=== PATIENT | female | born 1935 | race Caucasian/White ===

== ENCOUNTER → 2021-06-13 | Outpatient (CLI) | payer MEDICARE ==
[2016-08-05 10:03] VITALS: BP 149/70
[~2021-06-13] MED LIST: AMLO-187 PO; IOHEXOL 300 MG/ML 75 ML VIAL. IV ONE; LISI10TA16 PO; METO-247 PO; SIMV10TA15 PO
[2021-06-13 11:32] LABS: CREATININE 0.9 mg/dL (0.6-1.0); GFR 59.8
--- NOTE | 2021-06-13 12:47 | RAD ---
EXAM: Abdomen and pelvis CT with and without intravenous contrast. HISTORY: Microscopic hematuria. TECHNIQUE: Computed tomographic images of the abdomen and pelvis were obtained prior to and following the administration of intravenous contrast. Multiplanar reformatting was performed. *One or more of the following individualized dose reduction techniques were utilized for this examina tion: 1. Automated exposure control. 2. Adjustment of the mA and/or kV according to patient size. 3. Use of iterative reconstruction technique. COMPARISON: 08/19/2016. FINDINGS: Evaluation of the lower thorax demonstrates bilateral posterior dependent and basilar atele ctasis with superimposed pleural parenchymal scarring. There is no infiltrate or pleural effusion. Th e heart is normal in size. There is a small hiatal hernia. There is a tiny suspected cyst within the inferior right hepatic lobe. The gallbladder, pancreas, spleen and adrenal glands are unremarkable. There is no evidence of nephro ureterolithiasis or hydronephrosis. There are multiple left greater than right renal parapelvic cysts and tiny cortical cyst. No solid renal lesion is seen. No urothelial lesion is seen. The bladder is unremarkable. There is no appendicitis. There is no bowel obstruction. There is distal colonic diverticulosis. Ther e is no diverticulitis. The uterus is unremarkable. There is a tiny right ovarian follicle. There are 2.8 cm and 1.8 cm left ovarian cysts. The aorta is normal in caliber. There is no lymphadenopathy. There is no acute or suspicious osseous lesion. There are degenerative changes throughout the spine. IMPRESSION: 1. No evidence of nephroureterolithiasis, hydronephrosis or suspicious intrinsic urothelial lesion. T here are multiple renal parapelvic cysts and cortical cysts. No solid renal lesion is seen. Follow is not routinely performed for simple cysts. 2. Distal colonic diverticulosis. 3. Left ovarian cysts. Despite the postmenopausal status of patient, the nearly 5 year course of stab ility favors benignity. Electronically signed by: Erin Flowers MD (06/13/2021 12:45 PM) [id number]
== END ==
LOC: CT 10:22
PROVIDERS: ATTEND Specialist
DX: N28.1 Cyst of kidney, acquired (principal); K57.30 Diverticulosis of large intestine without perforation or abscess without bleeding; N83.202 Unspecified ovarian cyst, left side; J98.11 Atelectasis; J94.8 Other specified pleural conditions; K44.9 Diaphragmatic hernia without obstruction or gangrene
CPT/HCPCS: 36415; 74178; 82565; Q9967

== ENCOUNTER → 2022-02-19 | Outpatient (CLI) | payer MEDICARE ==
[2016-08-05 10:03] VITALS: BP 149/70
[~2022-02-19] MED LIST changes: -IOHEXOL 300 MG/ML 75 ML VIAL. IV ONE
--- NOTE | 2022-02-19 16:59 | RAD ---
XR THORACIC SPINE 3VIEWS, XR RIBS MIN 3 VIEWS LT W/PA CHEST History: Reason: FALL BACK PAIN / Spl. Instructions: / History: Technique: PA view the chest additional views of the left ribs. 3 views of the thoracic spine. Comparison: None. Findings: Chest and RIBS: No consolidation or pleural effusion. No pneumothorax. Elevation the right hemidiaphr agm.. Normal heart size. No displaced rib fracture. Thoracic spine: Normal vertebral body height and alignment. Mid thoracic compression fracture with mi ld height loss. Mild thoracic degenerative disc changes. Impression: 1. Age-indeterminate mild mid thoracic compression fracture. Recommend correlation with point tender ness. If persistent clinical concern, MRI can better evaluate. 2. No displaced rib fractures. Electronically signed by: Juan Carlos Mariscal DO (02/19/2022 4:57 PM) [id number]
== END ==
LOC: RAD 09:05
PROVIDERS: ATTEND Family Medicine
DX: M47.814 Spondylosis without myelopathy or radiculopathy, thoracic region (principal); M48.54XA Collapsed vertebra, not elsewhere classified, thoracic region, initial encounter for fracture
CPT/HCPCS: 71101; 72072